=== PATIENT | male | born 1985 | race Two or more races ===

== ENCOUNTER 2018-11-17 20:42 | Emergency (ER) | payer OTHER ==
[~2018-11-17] VITALS: Ht 170.2 cm; Wt 73.0 kg
[2018-11-17 20:59] VITALS: BP 141/85
[2018-11-17] MEDS ORDERED: HYDROCODONE/APAP 5/325MG 1 EACH TABLET PO ONE (21:30)
[2018-11-17] MEDS ORDERED: HYDROCODONE/APAP 5/325MG 1 EACH TABLET ONE (21:30)
[2018-11-17] MEDS ORDERED: ONDANSETRON 4 MG TAB.RAPDIS SL ONE (21:30)
[2018-11-17] MEDS ORDERED: ONDANSETRON 4 MG TAB.RAPDIS ONE (21:31)
== END 2018-11-17 23:39 | disposition home or self-care (01) ==
LOC: ER 20:47
DX: S92.191A Other fracture of right talus, initial encounter for closed fracture (principal); X50.1XXA Overexertion from prolonged static or awkward postures, initial encounter; Y93.01 Activity, walking, marching and hiking; Y92.89 Other specified places as the place of occurrence of the external cause; Y99.8 Other external cause status
CPT/HCPCS: 29515; 73610; 99283; Q0162